=== PATIENT | male | born 1970 | race American Indian/Alaskan Native ===

== ENCOUNTER 2016-12-28 00:07 | Emergency (ER) | payer OTHER ==
--- NOTE | 2016-12-28 01:14 | XRay Report ---
FINAL REPORT PROCEDURE: XR ABDOMEN 2V TECHNIQUE: Abdominal series, including supine and upright AP views. HISTORY: pain, constipation, send for report COMPARISON: No prior studies are available for comparison. FINDINGS: Bowel gas pattern:Nonobstructive . Masses or calcifications:None . Bony structures:No significant abnormality . Pneumoperitoneum:None . Other:No significant findings . IMPRESSION: No acute abnormality.
[2016-12-28 01:31] LABS: Basophils % (Auto) 0.7 % (0.0-1.8); Hematocrit 42.6 % (35.5-45.6); Hemoglobin 13.9 gm/dl (11.8-15.2); Mean Corpuscular HGB Conc 33 % (32-34); Mean Corpuscular Hemoglobin 27 pg (28-32); Mean Corpuscular Volume 81 fl (84-94); Platelet Count 316 K/mm3 (140-440); Red Blood Count 5.26 M/mm3 (3.65-5.03); Red Cell Distribution Width 14.1 % (13.2-15.2); White Blood Count 7.5 K/mm3 (4.5-11.0)
[2016-12-28 01:50] LABS: Alanine Aminotransferase 24 units/L (7-56); Albumin 3.9 g/dL (3.9-5); Alkaline Phosphatase 74 units/L (35-129); Anion Gap 15 mmol/L; Bilirubin,Total 0.2 mg/dL (0.1-1.2); Blood Urea Nitrogen 13 mg/dL (9-20); Calcium 9.3 mg/dL (8.4-10.2); Carbon Dioxide 28 mmol/L (22-30); Chloride 99.7 mmol/L (98-107); Glucose 145 mg/dL (75-100); Lipase 89 units/L (13-60); Sodium 139 mmol/L (137-145)
[2016-12-28 02:26] LABS: Bilirubin,Urine NEG (Negative); Blood,Urine NEG (Negative); Ketones,Urine TR mg/dL (Negative); Leukocyte Esterase,Urine NEG (Negative); Mucus,Urine FEW /HPF; Nitrite,Urine NEG (Negative); Protein,Urine <15 mg/dL mg/dL (Negative); Urobilinogen,Urine < 2.0 mg/dL (<2.0)
[2016-12-28 03:20] VITALS: BP 117/80
--- NOTE | 2016-12-30 19:48 | ED Elopement Review ---
ED Pt Elopement review - Results review Lab results: Laboratory Tests 12/28/16 12/28/16 12/28/16 01:08 01:08 Unknown WBC 7.5 RBC 5.26 H Hgb 13.9 Hct 42.6 MCV 81 L MCH 27 L MCHC 33 RDW 14.1 Plt Count 316 Lymph % (Auto) 36.7 H [place] % (Auto) 9.1 H Eos % (Auto) 7.0 H Baso % (Auto) 0.7 Lymph # 2.8 [place] # 0.7 Eos # 0.5 H Baso # 0.1 Seg Neutrophils % 46.5 Seg Neutrophils # 3.5 Sodium 139 Potassium 4.0 Chloride 99.7 Carbon Dioxide 28 Anion Gap 15 BUN 13 Creatinine 1.0 Estimated GFR > 60 BUN/Creatinine Ratio 13.00 Glucose 145 H Calcium 9.3 Total Bilirubin 0.2 AST 20 ALT 24 Alkaline Phosphatase 74 Total Protein 8.0 Albumin 3.9 Albumin/Globulin Ratio 1.0 Lipase 89 H Urine Color Yellow Urine Turbidity Clear Urine pH 6.0 Ur Specific [place] 1.028 Urine Protein <15 mg/dl Urine Glucose (UA) Neg Urine Ketones Tr Urine Blood Neg Urine Nitrite Neg Ur Reducing Substances Not Reportable Urine Bilirubin Neg Urine Ictotest Not Reportable Urine Urobilinogen < 2.0 Ur Leukocyte Esterase Neg Urine WBC (Auto) 2.0 Urine RBC (Auto) 8.0 Urine Mucus Few - Call Back decision Pt Call Back Decision: No action required
== END 2016-12-28 01:09 | disposition left against medical advice (07) ==
LOC: ED 00:07
DX: R10.30 Lower abdominal pain, unspecified (principal); Z53.21 Procedure and treatment not carried out due to patient leaving prior to being seen by health care provider
CPT/HCPCS: 36415; 74020; 80053; 81001; 83690; 85025

== ENCOUNTER 2017-01-03 16:26 | Emergency (ER) | payer OTHER ==
--- NOTE | 2017-01-03 17:07 | Emergency Department Report ---
Chief Complaint: Abdominal Pain Stated Complaint: ABD PAIN/CONSTIPATION Time Seen by Provider: 01/03/17 17:05 - HPI History of Present Illness: pt c/o constipation x 1 week. PT states he went to the pharmacy last week and started on Colace and Senokot but no relief. - ROS Review of Systems: + nausea - vomiting + llq abd pain - Exam Physical Exam: pt looks well, non toxic. no acute distress abd soft and non tender at this time. + bs x 4 MSE screening note: Focused history and physical exam performed. Due to findings the following was ordered: xr ED Disposition for MSE Condition: Stable
[2017-01-03 17:10] VITALS: BP 121/89
[2017-01-03] MEDS ORDERED: ZOFRAN ODT PO ONE (19:52)
[2017-01-03] MEDS ORDERED: PEPCID PO ONE (20:06)
--- NOTE | 2017-01-03 20:10 | Emergency Department Report ---
HPI - General Chief Complaint: Abdominal Pain Time Seen by Provider: 01/03/17 17:05 - HPI HPI: 46-year-old -Irish male comes in with complaint abdominal pain and constipation 2 weeks. Patient reports that he was here a few days ago but left without being seen. Patient reports that it did start stool softeners and a laxative this a.m. and had a BM this morning states he feels bloated and complains of nausea but no vomiting. Patient denies any fever or chills. Patient reports no past medical history currently takes no medications. ED Past Medical Hx - Past Medical History Previous Medical History?: No - Surgical History Past Surgical History?: No - Social History Smoking Status: Never Smoker Substance Use Type: None - Medications Home Medications: Home Medications Medication Instructions Recorded Confirmed Last Taken Type Amoxicillin [Amoxicillin TAB] 875 mg PO BID #20 tablet 09/28/16 Unknown Rx Cetirizine HCl [24Hour Allergy] 10 mg PO DAILY #30 tablet 09/28/16 Unknown Rx Famotidine [Pepcid] 40 mg PO BID #30 tablet 01/03/17 Unknown Rx Polyethylene Glycol 3350 [Miralax 17 gm PO QDAY #1 box 01/03/17 Unknown Rx 3350] ED Review of Systems ROS: Stated complaint: ABD PAIN/CONSTIPATION Other details as noted in HPI Constitutional: denies: chills, fever Eyes: denies: eye pain, eye discharge, vision change ENT: denies: ear pain, throat pain Respiratory: denies: cough, shortness of breath, wheezing Cardiovascular: denies: chest pain, palpitations Gastrointestinal: abdominal pain, nausea, constipation Genitourinary: denies: urgency, dysuria Musculoskeletal: denies: back pain, joint swelling, arthralgia Skin: denies: rash, lesions Neurological: denies: headache, weakness, paresthesias Physical Exam - Physical Exam Vital Signs: Vital Signs 01/03/17 17:05 Temperature 98.8 F Pulse Rate 95 H Respiratory 16 Rate Blood Pressure 121/89 O2 Sat by Pulse 100 Oximetry Physical Exam: GENERAL: Alert and oriented x3, no apparent distress, Normal Gait, atraumatic. HEAD: Head is normocephalic and a-traumatic. EYES: Extra ocular muscles are intact. Pupils are equal, round, and reactive to light and accommodation. LUNGS: Symetrical with respiration, No wheezing, no rales or crackles, CTAB. HEART: S1, S2 present, regular rate and rhythm without murmur, no rubs, no gallops. ABDOMEN: No organomegaly was noted,Positive bowel sounds, soft, and non- distended. . Nontender to palpation on all Quadrants, NO CVA tenderness. Mild tenderness to the epigastric area EXTREMITIES/MUSCULOSKELETAL: No cyanosis, clubbing, rash, lesions or edema. Full ROM bilaterally. UE/LE Pulses 2+ bilaterally. LE and UE 5+ strength bilaterally NEUROLOGIC: No focal Deficit, Cranial nerves II through XII are grossly intact. No loss of sensation, No facial droop, PSYCHIATRIC: Mood is congruent with affect, SKIN: Warm and dry, No lesions, No ulceration or induration present ED Course Vital Signs 01/03/17 17:05 Temperature 98.8 F Pulse Rate 95 H Respiratory 16 Rate Blood Pressure 121/89 O2 Sat by Pulse 100 Oximetry ED Medical Decision Making - Radiology Data Radiology results: report reviewed, image reviewed FINDINGS: Bowel gas pattern:There is a nonspecific bowel gas pattern with no plain film evidence of ileus or obstruction. There is moderate amount of stool throughout the colon greater on the right side.. Masses or calcifications:Around calcification in the left pelvis is probably a phlebolith although I cannot definitely exclude a distal ureteral stone. This is unchanged from prior film. Bony structures:No significant abnormality. Other:None. IMPRESSION: There is a nonspecific bowel gas pattern. There is a moderate amount of stool throughout the colon greater on the right side. Transcribed By: NIMA Dictated By: DORA FRANCE MD Electronically Authenticated By: DORA FRANCE MD Signed Date/Time: 01/03/17 2018 - Medical Decision Making She's been evaluated by this provider fast track. Patient was ordered Zofran 8 mg by mouth as well as Pepcid 40 mg by mouth. We're awaiting for a report from the [facility] that was ordered. Critical care attestation.: If time is entered above; I have spent that time in minutes in the direct care of this critically ill patient, excluding procedure time. ED Disposition Clinical Impression: Constipation Qualifiers: Constipation type: unspecified constipation type Qualified Code(s): K59.00 - Constipation, unspecified Abdominal pain Qualifiers: Abdominal location: epigastric Qualified Code(s): R10.13 - Epigastric pain Disposition: DISCHARGED TO HOME OR SELFCARE Is pt being admited?: No Does the pt Need Aspirin: No Condition: Stable Instructions: High Fiber Diet (ED), Constipation (ED) Additional Instructions: It is very important for you to drink plenty of fluids consume a high fiber diet and take them MiraLAX as prescribed and follow up with the GI specialist. 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 Prescriptions: Famotidine [Pepcid] 40 mg PO BID #30 tablet Polyethylene Glycol 3350 [Miralax 3350] 17 gm PO QDAY #1 box Referrals: PRIMARY CARE, [Primary Care Provider] - 3-5 Days [facility] [Provider Group] - 3-5 Days Forms: Work/School Release Form(ED)
--- NOTE | 2017-01-03 20:22 | XRay Report ---
FINAL REPORT PROCEDURE: XR ABDOMEN 1V AP TECHNIQUE: One film obtained which is a single AP supine view of the abdomen HISTORY: Abdominal pain. Constipation. COMPARISON: No prior studies are available for comparison. FINDINGS: Bowel gas pattern:There is a nonspecific bowel gas pattern with no plain film evidence of ileus or obstruction. There is moderate amount of stool throughout the colon greater on the right side.. Masses or calcifications:Around calcification in the left pelvis is probably a phlebolith although I cannot definitely exclude a distal ureteral stone. This is unchanged from prior film. Bony structures:No significant abnormality. Other:None. IMPRESSION: There is a nonspecific bowel gas pattern. There is a moderate amount of stool throughout the colon greater on the right side.
== END 2017-01-03 22:00 | disposition home or self-care (01) ==
LOC: ED 16:26
DX: K59.00 Constipation, unspecified (principal); R10.13 Epigastric pain
CPT/HCPCS: 74000; 99283; Q0162

== ENCOUNTER 2017-04-10 09:56 | Emergency (ER) | payer OTHER ==
--- NOTE | 2017-04-10 10:21 | Emergency Department Report ---
Chief Complaint: Pain General Stated Complaint: EAR NOSE THROAT PAIN/CONSTIPATION Time Seen by Provider: 04/10/17 10:16 - HPI History of Present Illness: PT c/o 4-5 days nasal congestion and headaches PT also c/o constipated x 1 week. minimal relief with OTC Fiber - ROS Review of Systems: - abd pain + constipation + brbpr when straining - cough - Exam Physical Exam: PT looks well, non toxic nasal congestion noted, + frontal sinus tenderness abd soft and non tender MSE screening note: Focused history and physical exam performed. Due to findings the following was ordered: labs, xr ED Disposition for MSE Condition: Stable
[2017-04-10] MEDS ORDERED: NACL 0.9% 250ML 250 ML ONE (10:39)
--- NOTE | 2017-04-10 11:01 | XRay Report ---
ABDOMEN: History: Abdominal pain. There is gas mixed with stool throughout the colon. There are no dilated loops of bowel or air-fluid levels. There is no free intraperitoneal gas. IMPRESSION: Fecal retention.
[2017-04-10 11:02] LABS: Basophils % (Auto) 0.5 % (0.0-1.8); Eosinophils % (Auto) 12.6 % (0.0-4.3); Hematocrit 37.7 % (35.5-45.6); Hemoglobin 12.4 gm/dl (11.8-15.2); Mean Corpuscular HGB Conc 33 % (32-34); Mean Corpuscular Hemoglobin 27 pg (28-32); Mean Corpuscular Volume 83 fl (84-94); Platelet Count 326 K/mm3 (140-440); Red Blood Count 4.56 M/mm3 (3.65-5.03); Red Cell Distribution Width 14.7 % (13.2-15.2); White Blood Count 8.4 K/mm3 (4.5-11.0)
[2017-04-10 11:11] LABS: INR 1.04 (0.87-1.13)
[2017-04-10 11:12] LABS: Alanine Aminotransferase 17 units/L (7-56); Albumin 3.5 g/dL (3.9-5); Albumin/Globulin Ratio 0.9 %; Alkaline Phosphatase 79 units/L (35-129); Anion Gap 16 mmol/L; Blood Urea Nitrogen 11 mg/dL (9-20); Calcium 8.5 mg/dL (8.4-10.2); Carbon Dioxide 24 mmol/L (22-30); Chloride 105.6 mmol/L (98-107); Glucose 97 mg/dL (75-100); Partial Thromboplastin Time 34.4 Sec. (24.2-36.6); Potassium 3.8 mmol/L (3.6-5.0); Sodium 142 mmol/L (137-145); Total Protein 7.6 g/dL (6.3-8.2)
[2017-04-10] MEDS ORDERED: NACL 0.9% 1000 ML 1,000 ML IV ONE (13:27)
[2017-04-10] MEDS ORDERED: TORADOL IV ONE (13:27)
--- NOTE | 2017-04-10 13:29 | Emergency Department Report ---
ED Headache HPI - General Chief Complaint: Headache Stated Complaint: EAR NOSE THROAT PAIN/CONSTIPATION Time Seen by Provider: 04/10/17 10:16 Source: patient - History of Present Illness Quality: moderate Head Injury Location: frontal, temporal Recent Head Trauma: occasional headaches Modifying Factors: improves with: other (tooth pain and swelling) Associated Symptoms: facial pain, fever/chills Allergies/Adverse Reactions: Allergies No Known Allergies Allergy (Verified 04/10/17 10:41) Home Medications: Ambulatory Orders Cetirizine HCl [24Hour Allergy] 10 mg PO DAILY #30 tablet 09/28/16 Famotidine [Pepcid] 40 mg PO BID #30 tablet 01/03/17 Amoxicillin [Amoxicillin TAB] 875 mg PO BID #20 tablet 04/10/17 Diclofenac Potassium 50 mg PO BID #12 tablet 04/10/17 Polyethylene Glycol 3350 [Miralax 3350] 17 gm PO QDAY #1 box 04/10/17 ED Review of Systems ROS: Stated complaint: EAR NOSE THROAT PAIN/CONSTIPATION Other details as noted in HPI Comment: All other systems reviewed and negative ED Past Medical Hx - Past Medical History Previous Medical History?: No - Surgical History Past Surgical History?: No - Social History Smoking Status: Never Smoker Substance Use Type: None - Medications Home Medications: Home Medications Medication Instructions Recorded Confirmed Last Taken Type Cetirizine HCl [24Hour Allergy] 10 mg PO DAILY #30 tablet 09/28/16 Unknown Rx Famotidine [Pepcid] 40 mg PO BID #30 tablet 01/03/17 Unknown Rx Amoxicillin [Amoxicillin TAB] 875 mg PO BID #20 tablet 04/10/17 Unknown Rx Diclofenac Potassium 50 mg PO BID #12 tablet 04/10/17 Unknown Rx Polyethylene Glycol 3350 [Miralax 17 gm PO QDAY #1 box 04/10/17 Unknown Rx 3350] ED Physical Exam - General Limitations: No Limitations General appearance: alert, in no apparent distress - Head Head exam: Present: atraumatic, normocephalic - Eye Eye exam: Present: normal appearance, PERRL, EOMI - ENT ENT exam: Present: normal exam, normal orophraynx, mucous membranes moist - Neck Neck exam: Present: normal inspection - Respiratory Respiratory exam: Present: normal lung sounds bilaterally. Absent: respiratory distress - Cardiovascular Cardiovascular Exam: Present: regular rate, normal rhythm. Absent: systolic murmur, diastolic murmur, rubs, gallop - GI/Abdominal GI/Abdominal exam: Present: soft, normal bowel sounds - Rectal Rectal exam: Present: deferred - Extremities Exam Extremities exam: Present: normal inspection - Back Exam Back exam: Present: normal inspection - Neurological Exam Neurological exam: Present: alert, oriented X3 - Psychiatric Psychiatric exam: Present: normal affect, normal mood - Skin Skin exam: Present: warm, dry, intact, normal color. Absent: rash ED Course Vital Signs 04/10/17 10:19 Temperature 98.8 F Pulse Rate 83 Respiratory 18 Rate Blood Pressure 129/85 O2 Sat by Pulse 100 Oximetry ED Medical Decision Making - Lab Data Result diagrams: 04/10/17 10:35 04/10/17 10:35 - Radiology Data Radiology results: report reviewed, image reviewed Critical care attestation.: If time is entered above; I have spent that time in minutes in the direct care of this critically ill patient, excluding procedure time. ED Disposition Clinical Impression: Headache Disposition: DC-01 TO HOME OR SELFCARE Is pt being admited?: No Does the pt Need Aspirin: No Condition: Good Instructions: Sinusitis (ED) Prescriptions: Amoxicillin [Amoxicillin TAB] 875 mg PO BID #20 tablet Diclofenac Potassium 50 mg PO BID #12 tablet Polyethylene Glycol 3350 [Miralax 3350] 17 gm PO QDAY #1 box Referrals: PRIMARY CARE, [Primary Care Provider] - 3-5 Days Time of Disposition: 14:48
--- NOTE | 2017-04-10 14:34 | Cat Scan Report ---
CT HEAD WITHOUT CONTRAST: HISTORY: Headache. Serial contiguous axial images were obtained through the cranium. Intravenous contrast material was not administered. The ventricles are normal in size and appearance. There is no mass effect or midline shift. No areas of abnormally increased or decreased attenuation are seen. No mass lesion is seen. Mild mucosal thickening in the ethmoid sinuses are noted. The remaining visualized paranasal sinuses and mastoid air cells are clear. IMPRESSION: Cranial CT scan within normal limits. Mild ethmoid sinus disease.
[2017-04-10 15:52] VITALS: BP 125/65
== END 2017-04-10 15:55 | disposition home or self-care (01) ==
LOC: ED 09:56
DX: R51 Headache (principal)
CPT/HCPCS: 36415; 70450; 74000; 80053; 85025; 85610; 85730; 96361; 96374; 99284; J1885; J7030; J7050

== ENCOUNTER 2017-09-26 18:27 | Emergency (ER) | payer SELFPAY ==
[2017-09-26 19:10] LABS: Bacteria,Urine 1+ /HPF (Negative); Mucus,Urine FEW /HPF
[2017-09-26 19:16] LABS: Basophils % (Auto) 0.4 % (0.0-1.8); Eosinophils % (Auto) 2.7 % (0.0-4.3); Hematocrit 42.4 % (35.5-45.6); Mean Corpuscular HGB Conc 33 % (32-34); Mean Corpuscular Hemoglobin 26 pg (28-32); Mean Corpuscular Volume 80 fl (84-94); Platelet Count 293 K/mm3 (140-440); Red Blood Count 5.33 M/mm3 (3.65-5.03); Red Cell Distribution Width 13.9 % (13.2-15.2); White Blood Count 7.1 K/mm3 (4.5-11.0)
[2017-09-26 19:19] LABS: Bilirubin,Urine NEG (Negative); Blood,Urine NEG (Negative); Ketones,Urine NEG (Negative); Leukocyte Esterase,Urine TR (Negative); Nitrite,Urine NEG (Negative); Protein,Urine <15 mg/dL mg/dL (Negative); Urobilinogen,Urine < 2.0 mg/dL (<2.0)
[2017-09-26 19:34] LABS: Alanine Aminotransferase 18 units/L (7-56); Albumin 4.1 g/dL (3.9-5); Albumin/Globulin Ratio 1.1 %; Alkaline Phosphatase 64 units/L (35-129); Anion Gap 18 mmol/L; BUN/Creatinine Ratio 18; Blood Urea Nitrogen 20 mg/dL (9-20); Carbon Dioxide 25 mmol/L (22-30); Chloride 99.1 mmol/L (98-107); Glucose 103 mg/dL (75-100); Lipase 152 units/L (13-60); Potassium 3.9 mmol/L (3.6-5.0); Sodium 138 mmol/L (137-145); Total Protein 7.8 g/dL (6.3-8.2)
--- NOTE | 2017-09-27 01:29 | Emergency Department Report ---
ED Abdominal Pain HPI - General Chief Complaint: Abdominal Pain Stated Complaint: ABDOMINAL PAIN Time Seen by Provider: 09/27/17 00:52 Source: patient Mode of arrival: Ambulatory Limitations: No Limitations - History of Present Illness Initial Comments: 46-year-old male with no significant past medical or surgical history presents to Hospital of having abdominal pain and bloating 3 days. Patient reports these haven't difficult having difficulty having a bowel movement. Small bowel movement reported yesterday after using MiraLAX. Patient afraid to eat because he feels like it will not come out. He denies belching, nausea, vomiting, fever , dysuria, melena, or hematochezia. - Related Data Previous Rx's Medication Instructions Recorded Last Taken Type Cetirizine HCl [24Hour Allergy] 10 mg PO DAILY #30 tablet 09/28/16 Unknown Rx Famotidine [Pepcid] 40 mg PO BID #30 tablet 01/03/17 Unknown Rx Amoxicillin [Amoxicillin TAB] 875 mg PO BID #20 tablet 04/10/17 Unknown Rx Diclofenac Potassium 50 mg PO BID #12 tablet 04/10/17 Unknown Rx Polyethylene Glycol 3350 [Miralax 17 gm PO QDAY #1 box 04/10/17 Unknown Rx 3350] Lactulose [Cephulac] 20 gm PO QDAY PRN #5 dose 09/27/17 Unknown Rx Allergies Allergy/AdvReac Type Severity Reaction Status Date / Time No Known Allergies Allergy Verified 04/10/17 10:41 ED Review of Systems ROS: Stated complaint: ABDOMINAL PAIN Other details as noted in HPI Comment: All other systems reviewed and negative Other: Constitutional: No fevers chills Eyes: No eye pain visual changes or discharge ENT: No ear pain or throat pain Neck: Denies pain Respiratory: Denies cough wheezing shortness of breath Cardiovascular: Denies chest pain, palpitations, syncope GI: As per HPI : Denies dysuria Musculoskeletal: Denies back pain, joint swelling Skin: Denies rash, lesions, erythema Neurologic: Denies headache, numbness, weakness Psychiatric: Denies suicidal ideation, hallucinations Hematological/lymphatic: Denies easy bruising, lymphadenopathy ED Past Medical Hx - Past Medical History Previous Medical History?: No - Surgical History Past Surgical History?: No - Social History Smoking Status: Never Smoker Substance Use Type: None - Medications Home Medications: Home Medications Medication Instructions Recorded Confirmed Last Taken Type Cetirizine HCl [24Hour Allergy] 10 mg PO DAILY #30 tablet 09/28/16 Unknown Rx Famotidine [Pepcid] 40 mg PO BID #30 tablet 01/03/17 Unknown Rx Amoxicillin [Amoxicillin TAB] 875 mg PO BID #20 tablet 04/10/17 Unknown Rx Diclofenac Potassium 50 mg PO BID #12 tablet 04/10/17 Unknown Rx Polyethylene Glycol 3350 [Miralax 17 gm PO QDAY #1 box 04/10/17 Unknown Rx 3350] Lactulose [Cephulac] 20 gm PO QDAY PRN #5 dose 09/27/17 Unknown Rx ED Physical Exam - General Limitations: No Limitations - Other Other exam information: General: No limitations, patient is alert in no acute distress Head exam: Atraumatic, normocephalic Eyes exam: Normal appearance, pupils equal reactive to light, extraocular movements intact ENT: Moist mucous membrane, normal oropharynx Neck exam: Normal inspection, full range of motion, no meningismus nontender Respiratory exam: Clear to auscultation bilateral, no wheezes, rales, crackles Cardiovascular: Normal rate and rhythm, normal heart sounds Abdomen: Soft, nondistended, and nontender, with normal bowel sounds, no rebound, or guarding Extremity: Full range of motion normal inspection no deformity Back: Normal Inspection, full range of motion, no tenderness Neurologic: Alert, oriented x3, cranial nerves intact, no motor or sensory deficit Psychiatric: normal affect, normal mood Skin: Warm, dry, intact ED Course Vital Signs 09/26/17 09/26/17 09/26/17 18:35 23:44 23:51 Temperature 98.7 F Pulse Rate 85 Respiratory 18 18 Rate Blood Pressure 132/81 O2 Sat by Pulse 99 100 100 Oximetry 09/27/17 09/27/17 09/27/17 00:00 00:30 01:00 Temperature Pulse Rate Respiratory Rate Blood Pressure 133/87 129/88 133/90 O2 Sat by Pulse 100 98 Oximetry - Reevaluation(s) Reevaluation #1: 09/27/17 02:43 Patient stable in the ED without significant discomfort ED Medical Decision Making - Lab Data Result diagrams: 09/26/17 18:59 09/26/17 18:59 Lab Results 09/26/17 09/26/17 09/26/17 Range/Units 18:51 18:59 18:59 WBC 7.1 (4.5-11.0) K/mm3 RBC 5.33 H (3.65-5.03) M/mm3 Hgb 14.0 (11.8-15.2) gm/dl Hct 42.4 (35.5-45.6) % MCV 80 L (84-94) fl MCH 26 L (28-32) pg MCHC 33 (32-34) % RDW 13.9 (13.2-15.2) % Plt Count 293 (140-440) K/mm3 Lymph % (Auto) 36.0 H (13.4-35.0) % [place] % (Auto) 11.6 H (0.0-7.3) % Eos % (Auto) 2.7 (0.0-4.3) % Baso % (Auto) 0.4 (0.0-1.8) % Lymph # 2.6 (1.2-5.4) K/mm3 [place] # 0.8 (0.0-0.8) K/mm3 Eos # 0.2 (0.0-0.4) K/mm3 Baso # 0.0 (0.0-0.1) K/mm3 Seg Neutrophils % 49.3 (40.0-70.0) % Seg Neutrophils # 3.5 (1.8-7.7) K/mm3 Sodium 138 (137-145) mmol/L Potassium 3.9 (3.6-5.0) mmol/L Chloride 99.1 (98-107) mmol/L Carbon Dioxide 25 (22-30) mmol/L Anion Gap 18 mmol/L BUN 20 (9-20) mg/dL Creatinine 1.1 (0.8-1.5) mg/dL Estimated GFR > 60 ml/min BUN/Creatinine Ratio 18 % Glucose 103 H (75-100) mg/dL Calcium 9.0 (8.4-10.2) mg/dL Total Bilirubin 0.20 (0.1-1.2) mg/dL AST 15 (5-40) units/L ALT 18 (7-56) units/L Alkaline Phosphatase 64 (35-129) units/L Total Protein 7.8 (6.3-8.2) g/dL Albumin 4.1 (3.9-5) g/dL Albumin/Globulin Ratio 1.1 % Lipase 152 H (13-60) units/L Urine Color Yellow (Yellow) Urine Turbidity Clear (Clear) Urine pH 6.0 (5.0-7.0) Ur Specific [place] 1.030 (1.003-1.030) Urine Protein <15 mg/dl (Negative) mg/dL Urine Glucose (UA) Neg (Negative) mg/dL Urine Ketones Neg (Negative) mg/dL Urine Blood Neg (Negative) Urine Nitrite Neg (Negative) Ur Reducing Substances Not Reportable Urine Bilirubin Neg (Negative) Urine Ictotest Not Reportable Urine Urobilinogen < 2.0 (<2.0) mg/dL Ur Leukocyte Esterase Tr (Negative) Urine WBC (Auto) 5.0 (0.0-6.0) /HPF Urine RBC (Auto) 13.0 (0.0-6.0) /HPF Urine Bacteria (Auto) 1+ (Negative) /HPF Calcium Oxalate Crystal 1+ Urine Mucus Few /HPF - Radiology Data Radiology results: report reviewed Abdominal series x-ray including chest read by radiologist: A moderate amount of retained feces in the colon. No acute process - Medical Decision Making Plan to discharge patient on medication for constipation and encouraged PMD follow-up. Labs unremarkable - Differential Diagnosis constipation, dyspepsia, GERD Critical Care Time: No Critical care attestation.: If time is entered above; I have spent that time in minutes in the direct care of this critically ill patient, excluding procedure time. ED Disposition Clinical Impression: Constipation Disposition: DC-01 TO HOME OR SELFCARE Is pt being admited?: No Does the pt Need Aspirin: No Condition: Stable Instructions: Constipation (ED) Additional Instructions: Take the lactulose as prescribed and as needed for constipation. You do not need to take all 5 doses if you begin to have significant bowel movements. Once this medication is completed you may continue to use to MiraLAX as needed. Changing your diet to include more fiber and vegetables will help with your constipation. Prescriptions: Lactulose [Cephulac] 20 gm PO QDAY PRN #5 dose PRN Reason: Constipation Referrals: [facility] [Provider Group] - 3-5 Days Time of Disposition: 02:46
--- NOTE | 2017-09-27 02:19 | XRay Report ---
FINAL REPORT EXAM: XR ABD SERIES W CXR 1V HISTORY: constipation, bloating TECHNIQUE: A PA view of the chest was obtained along with three views of the abdomen. FINDINGS: The chest reveals normal heart size and mediastinum. The lungs are clear. The bones and soft tissues appear normal. The bowel gas pattern is unremarkable. There is a moderate amount retained feces in the colon. There are no suspicious calcifications. The bones and soft tissues well maintained. IMPRESSION: No active chest disease. Moderate amount retained feces in the colon. No acute process identified.
[2017-09-27 03:24] VITALS: BP 117/77
== END 2017-09-27 03:27 | disposition home or self-care (01) ==
LOC: ED 18:27
DX: K59.00 Constipation, unspecified (principal); R10.9 Unspecified abdominal pain
CPT/HCPCS: 36415; 74022; 80053; 81001; 83690; 85025; 99284